=== PATIENT | female | born 1990 ===

== ENCOUNTER 2023-09-18 17:26 | Emergency (ER) | payer SELFPAY ==
[2023-09-18 17:34] VITALS: BP 119/79
[2023-09-18 18:29] VITALS: BMI 30.7
[2023-09-18] MEDS: NSS 1000 IV (19:08)
[2023-09-18] MEDS: TORADOL 15 MG IV (19:11)
[2023-09-18] MEDS: TYLENOL 1000 MG PO (19:15)
[2023-09-18 19:38] VITALS: BP 117/80
[2023-09-18 19:54] LABS: % Basophils 0.2 % (0-2); % Eosinophils 0.2 % (0-6); % Immature Granulocytes 0.4 % (0-0.5); % Lymphocytes 8.7 % (20.5-51.1); % Monocytes 11.3 % (1.7-9.3); % Neutrophils 79.2 % (42.2-75.2); Absolute Lymphocytes 0.4 10^3/uL (1.2-3.4); Absolute Monocytes 0.6 10^3/uL (0.1-0.6); Absolute Neutrophils 3.9 10^3/uL (1.4-6.5); Hematocrit 33.6 % (37.0-47.0); Hemoglobin 11.8 g/dL (12.0-16.0); Mean Corp Hgb Conc. 35.1 g/dL (33.0-37.0); Mean Corpuscular Hgb 29.1 pg (27.0-31.0); Nucleated Red Blood Cells % 0 %; Platelet Count 185 10^3/uL (130-400); Red Blood Cell Count 4.05 10^6/uL (4.20-5.40); Red Cell Dist. Width 12.5 % (11.5-14.5)
[2023-09-18 20:11] LABS: HCG, Serum Qualitative Screen Negative
[2023-09-18 20:12] LABS: ALT (SGPT) 14 U/L (0-35); AST (SGOT) 22 U/L (14-36); Albumin 3.8 g/dl (3.5-5.0); Alkaline Phosphatase 68 U/L (38-126); Blood Urea Nitrogen 6 mg/dl (7-17); Calcium 8.3 mg/dl (8.4-10.2); Carbon Dioxide 22 mmol/L (22-30); Chloride 103 mmol/L (98-107); Estimated Creatinine Clearance 101 ml/min; Glucose 86 mg/dl (70-99); Potassium 3.4 mmol/L (3.5-5.1); Sodium 133 mmol/L (135-145); Total Bilirubin 1.2 mg/dl (0.2-1.3); Total Protein 6.2 g/dl (6.3-8.2); eGFR > 60.00
[2023-09-18 20:18] LABS: Urine Albumin Negative (Neg - Trace); Urine Bilirubin Negative (Negative); Urine Character Clear (Clear); Urine Color Yellow; Urine Glucose Negative (Negative); Urine Ketone Trace (Negative); Urine Leukocyte Negative (Negative); Urine Nitrite Negative (Negative); Urine Occult Blood Negative (Negative); Urine Specific Gravity 1.005 (<1.030); Urine Urobilinogen Negative (Neg - 1+); Urine pH 6.5 (5.0-9.0)
--- NOTE | 2023-09-18 21:02 | ED.GENMED ---
History of Present Illness
General
Chief Complaint: Back Pain
Source: patient
Exam Limitations: none
Time Seen by Provider: 09/18/23 18:05
Nursing documentation reviewed up to this point in time: agreed with
History of Present Illness
History of Present Illness:
33-year-old female past medical history of hypothyroidism presenting to the emergency department today with concerns of bodyaches chills some back pain headache throughout the day today. Denies any similar symptoms in the past. Denies any
injuries. Denies any concerns of neck pain denies any IV drug use.
Review of Systems
Review of Systems
Allergies reviewed?: Yes
All Other Systems: ROS reviewed and negative except as documented in HPI and ROS
Phy Exam
Physical Exam
Physical Exam:
GENERAL: Alert , in no apparent distress
EYE: pupils equal and reactive
NECK: Supple, no significant adenopathy.
ENT: o/p clr, mmm.
CARDIAC: Regular rate and rhythm .
LUNGS: Clear breath sounds bilaterally, no acute respiratory distress, no wheezes/rales/rhonchi
ABDOMEN: Soft, without focal tenderness, no r/g, no cvat
NEUROLOGICAL: Alert and oriented, no focal neuro deficits
SKIN: Warm and dry, skin intact.
MUSCULOSKELETAL: No edema, well perfused.
PSYCH: Normal and appropriate interaction.
Course
Orders/Labs/Results
Orders:
Orders
09/18/23 18:36
CT Abd/pel Without Iv Or Oral Urgent
Comment:
Reason For Exam: left flank pain
0.9% Sodium Chloride 1000 ml [Nss] 1,000 ml IV BOLUS
Acetaminophen [Tylenol] 1,000 mg PO NOW STA
Ketorolac [Toradol] 15 mg IV NOW STA
Test Result ONCE
09/18/23 19:47
Complete Blood Count/With Diff Urgent
Comprehensive Metabolic Panel Urgent
HCG, Serum Qualitative Screen Urgent
09/18/23 19:53
Urinalysis Reflex To Culture Urgent
Date Specimen was Collected: 09/18/23
Time Specimen was Collected: 19:51
09/18/23 21:03
Vital Signs- Treatment ONCE
Frequency: Once
Abnormal Lab Results
09/18/23 09/18/23
19:47 19:53
RBC 4.05 L 10^6/uL
(4.20-5.40)
Hgb 11.8 L g/dL
(12.0-16.0)
Hct 33.6 L %
(37.0-47.0)
MPV 11.0 H fL
(7.4-10.4)
Absolute Lymphs (auto) 0.4 L 10^3/uL
(1.2-3.4)
Neutrophils % 79.2 H %
(42.2-75.2)
Lymphocytes % 8.7 L %
(20.5-51.1)
Monocytes % 11.3 H %
(1.7-9.3)
Sodium 133 L mmol/L
(135-145)
Potassium 3.4 L mmol/L
(3.5-5.1)
BUN 6 L mg/dl
(7-17)
Calcium 8.3 L mg/dl
(8.4-10.2)
Total Protein 6.2 L g/dl
(6.3-8.2)
Urine Ketones Trace A
(Negative)
09/18/23 19:47
09/18/23 19:47
Vital Signs
Initial and Last Documented VS:
Initial Vital Signs
Temp Pulse Resp BP Pulse Ox
100.4 F H 101 16 119/79 99
09/18/23 17:34 09/18/23 17:34 09/18/23 17:34 09/18/23 17:34 09/18/23 17:34
Last Documented Vital Signs
Temp Pulse Resp BP Pulse Ox
98.7 F 89 18 102/59 98
09/18/23 21:23 09/18/23 21:23 09/18/23 21:23 09/18/23 21:23 09/18/23 21:23
MDM/Problems Addressed
MDM/Problems Addressed:
33-year-old female presenting to the emergency department with multiple concerns mainly chills body aches fever backache headache throughout the day today. Upon arrival patient with low-grade temperature mildly elevated heart rate labs without
emergent findings urinalysis normal CT scan of the abdomen without acute findings. Patient with significant improvement of symptoms after receiving Tylenol and Toradol no emergent findings on labs stable for outpatient management potential viral
syndrome no evidence of emergent process no neck pain no signs of meningismus.
*Critical Care Note
Total Time (30-74mins, 75-104mins- exclusive of procedures): Not Applicable
ED Attending Note
-
Portions of this chart may have been created with voice recognition software.� Occasional wrong word or��sound alike� substitutions may have occurred due to the inherent limitations of voice recognition software.
Discharge Plan
Departure
Patient Disposition: Home (Routine Discharge)
Date of Disposition: 09/18/23
Time of Disposition: 21:54
Patient with high blood pressure during this ER visit?: No
Condition: Good
Covid-19: Not Applicable
Discharge Problem:
Acute viral syndrome
Referrals:
NONE,* [Family Provider] -
Activity Restrictions/Additional Instructions:
You came to the emergency department today with concerns of multiple symptoms.. Reassuring assessment. Please follow closely with your primary care doctor. Return to the emergency department for any worsening, new or concerning symptoms.
Interventions
Interventions:
*Risk Screen - Suicide Last Done: 09/18/23 18:29
*General Assessment Last Done: 09/18/23 18:29
*Neglect/Abuse Screening Last Done: 09/18/23 18:29
*ED COVID-19 Vaccine History Last Done: 09/18/23 17:34
ED-Musculoskeletal Assessment Last Done: 09/18/23 18:31
Discharge Date and Time
Print Language: KOREAN
[2023-09-18 21:23] VITALS: BP 102/59
== END 2023-09-18 22:03 | disposition home or self-care (01) ==
LOC: EMR 17:26
PROVIDERS: Physician Assistant; EMERGENCY PHYSICIAN Student in an Organized Health Care Education/Training Program
DX: B34.9 Viral infection, unspecified (principal); R51.9 Headache, unspecified; M54.50 Low back pain, unspecified; R10.9 Unspecified abdominal pain; E03.9 Hypothyroidism, unspecified
CPT/HCPCS: 99284; 96374; 96361; 74176; 80053; 81003; 84703; 85025